=== PATIENT | female | born 1970 | race Caucasian/White ===

== ENCOUNTER 2020-11-27 19:37 | Inpatient (IN) | payer BC ==
[~2020-11-27] VITALS: Ht 162.6 cm; Wt 100.2 kg
[~2020-11-27 19:37] MED LIST: PROTONIX40 MG PO; VICODIN 5-5001 EACH PO; XANAX 0.5 MG0.5 MG
[2020-11-27 19:50] VITALS: BP 135/78
[2020-11-27 21:30] LABS: ABSOLUTE LYMPHOCYTES 0.4 thou/uL (0.8-5.3); ABSOLUTE MONOCYTES 0.4 thou/uL (0.0-1.2); ABSOLUTE NEUTROPHILS 4.1 thou/uL (1.6-8.1); BASOPHILS 0.2 %; HEMATOCRIT 41.4 % (37.0-47.0); HEMOGLOBIN 14.4 gm/dL (12.0-15.0); LYMPHOCYTES 7.7 %; MCH 28.4 pg (26.0-34.0); MCHC 34.8 g/dL (28.0-37.0); MCV 81.7 fL (80.0-100.0); MONOCYTES 7.7 %; MPV 7.3 fl. (7.2-11.1); NUCLEATED RBCS 0 /100WBC; PLATELET COUNT* 220 thou/uL (150-400); POLYS 84.4 %; RBC 5.07 mil/uL (4.20-5.00); WBC 4.8 thou/uL (4.0-11.0)
[2020-11-27 21:36] LABS: BE 0.1 mmol/L (-2 to +3); PCO2 36.3 mmHg (35.0-45.0); PO2 60.2 mmHg (75.0-100.0); pH 7.435 (7.340-7.450)
[2020-11-27 21:38] LABS: CALCIUM 8.2 mg/dL (8.5-10.1); CREATININE 0.8 mg/dL (0.6-1.3); POTASSIUM 3.8 mmol/L (3.5-5.1)
[2020-11-27 21:42] LABS: TOTAL BILIRUBIN 0.4 mg/dL (<0.1-1.0); TOTAL PROTEIN 7.2 g/dL (6.4-8.2)
[2020-11-28 01:15] VITALS: BP 127/69
[2020-11-28 02:00] VITALS: BP 128/69
--- NOTE | 2020-11-28 03:28 | NUR ---
PT TRANSFERRED TO RM 112. RECEIVED REPORT FROM DAKOTA MORIN. PT A&OX4. VSS. ADMISSION HISTORY & PHYSICAL ASSESSMENT COMPLETED AND CHARTED. ORIENTED TO ROOM & CALL LIGHT. O2 SAT 89-90'S-INCREASED O2 TO 3LNC. PT TRACING SR ON TELE. PT DENIES NAUSEA OR PAIN. CALL LIGHT WITHIN REACH.
[2020-11-28 08:12] VITALS: BP 122/59
[2020-11-28 12:00] VITALS: BP 133/67
[2020-11-28 15:55] VITALS: BP 107/61
--- NOTE | 2020-11-28 18:28 | NUR ---
Pt c/o frequent non-productive cough; orders received from Dr. Rodgers (see MAR). Denies pain. VSS. O2 @ 3L per NC; sats low 90s. Pt up ad josefa to chair/BSC. IVF running until 1800 after order to discontinue. Pt taking ice chips to help relieve cough while minimizing fluid intake as she had 2 pitchers of ice water today. Voiding per BSC; had BM today (reports it had been a week since previous BM). No nausea today. Will continue to monitor.
[2020-11-28 20:00] VITALS: BP 113/56
[2020-11-29] VITALS (8 sets, daily range): BP systolic 111–147; BP diastolic 57–70
--- NOTE | 2020-11-29 03:48 | NUR ---
ASSUMED CARE OF PT AFTER REPORT AT 1930. PT A&OX4. VSS. PHYSICAL ASEESSMENT COMPLETED AND CHARTED. PT O2 SAT 87-89%- INCREASED O2 TO 5LNC-O2 SAT 91-93%. PT TRACING SR ON TELE. PT UPADLIB TO BSC. UPDATED PTS -ANDREW REGARDING PT CONDITION. CALL LIGHT WITHIN REACH.
[2020-11-29 05:35] LABS: ABSOLUTE LYMPHOCYTES 0.6 thou/uL (0.8-5.3); ABSOLUTE MONOCYTES 0.4 thou/uL (0.0-1.2); ABSOLUTE NEUTROPHILS 4.3 thou/uL (1.6-8.1); BASOPHILS 0.1 %; HEMATOCRIT 40.5 % (37.0-47.0); HEMOGLOBIN 13.9 gm/dL (12.0-15.0); LYMPHOCYTES 10.7 %; MCH 28.1 pg (26.0-34.0); MCHC 34.4 g/dL (28.0-37.0); MCV 81.6 fL (80.0-100.0); MONOCYTES 7.3 %; MPV 7.4 fl. (7.2-11.1); NUCLEATED RBCS 0 /100WBC; PLATELET COUNT* 249 thou/uL (150-400); POLYS 81.9 %; RBC 4.96 mil/uL (4.20-5.00); RDW-CV 13.2 % (10.5-14.5); WBC 5.2 thou/uL (4.0-11.0)
[2020-11-29 06:02] LABS: ALBUMIN 2.7 g/dL (3.4-5.0); CALCIUM 7.9 mg/dL (8.5-10.1); CREATININE 0.6 mg/dL (0.6-1.3); MAGNESIUM 1.9 mg/dL (1.8-2.4); POTASSIUM 3.5 mmol/L (3.5-5.1); TOTAL BILIRUBIN 0.4 mg/dL (<0.1-1.0); TOTAL PROTEIN 6.9 g/dL (6.4-8.2)
--- NOTE | 2020-11-29 11:12 | NUR ---
PT'S CALLED FOR UPDATE AND INFORMED HIM WE HAD TO BUMP UP PT'S 02 TO 10L AND SHE WILL BE GETTING PLASMA TODAY.
--- NOTE | 2020-11-29 19:52 | NUR ---
A&OX 4, PWD. LUNGS DIMINISHED THROUGHOUT. HEART TONES REGULAR, SR ON MONITOR. +BS X 4 QUADS. PEDAL PULSES PRESENT NO EDEMA NOTED. PT HAD APPROX. 3000 MLS URINE OUT PUT. ALSO HAD BM TODAY. RIGHT AC IV LEAKING AND TAKEN OUT. NEW IV STARTED RIGHT HAND, 20G, X 1 STICK. PT RECEIVED PLASMA TODAY, CONSENT IN CHART. PT STILL ON HF NC AT 10L. NO OTHER C/O. ROMMEL CONTINUE TO MONITOR. ATE APPROX. 40% OF LUNCH.
[2020-11-30] VITALS (10 sets, daily range): BP systolic 115–157; BP diastolic 46–84
--- NOTE | 2020-11-30 06:05 | NUR ---
ASSUMED CARE OF PT AFTER REPORT AT 1930. PT A& OX4. VSS. PHYSICAL ASSESSMENT COMPLETED AND CHARTED. PT ON HFNC 11L-REFUSED BIPAP EVEN AFTERE EDUCATION. PT TRACING SR ON TELE. PT REQUESTED FOR SLEEPIN AID-DR MCGEE MADE AWARE WITH NEW ORDER. CALL LIGHT WITHIN REACH.
[2020-11-30 06:57] LABS: ABSOLUTE LYMPHOCYTES 0.6 thou/uL (0.8-5.3); ABSOLUTE MONOCYTES 0.7 thou/uL (0.0-1.2); ABSOLUTE NEUTROPHILS 3.8 thou/uL (1.6-8.1); BASOPHILS 0.2 %; HEMATOCRIT 39.8 % (37.0-47.0); HEMOGLOBIN 13.8 gm/dL (12.0-15.0); LYMPHOCYTES 11.2 %; MCH 28.2 pg (26.0-34.0); MCHC 34.7 g/dL (28.0-37.0); MCV 81.5 fL (80.0-100.0); MONOCYTES 14.6 %; MPV 7.1 fl. (7.2-11.1); NUCLEATED RBCS 0 /100WBC; PLATELET COUNT* 287 thou/uL (150-400); RBC 4.89 mil/uL (4.20-5.00); WBC 5.1 thou/uL (4.0-11.0)
[2020-11-30 07:11] LABS: PREALBUMIN 11.1 mg/dL (18.0-35.7)
[2020-11-30 07:17] LABS: ALBUMIN 2.7 g/dL (3.4-5.0); CALCIUM 8.2 mg/dL (8.5-10.1); CREATININE 0.5 mg/dL (0.6-1.3); MAGNESIUM 2.2 mg/dL (1.8-2.4); POTASSIUM 3.8 mmol/L (3.5-5.1); TOTAL BILIRUBIN 0.4 mg/dL (<0.1-1.0); TOTAL PROTEIN 6.7 g/dL (6.4-8.2)
[2020-11-30 14:29] LABS: HEMOGLOBIN 13.7 gm/dL (12.0-15.0); MCH 28.3 pg (26.0-34.0); MCHC 34.2 g/dL (28.0-37.0); MCV 82.9 fL (80.0-100.0); MPV 7.1 fl. (7.2-11.1); NUCLEATED RBCS 0 /100WBC; PLATELET COUNT* 307 thou/uL (150-400); RBC 4.83 mil/uL (4.20-5.00); RDW-CV 13.1 % (10.5-14.5); WBC 9.3 thou/uL (4.0-11.0)
[2020-11-30 14:36] LABS: CALCIUM 8.1 mg/dL (8.5-10.1); CREATININE 0.8 mg/dL (0.6-1.3); POTASSIUM 3.9 mmol/L (3.5-5.1)
[2020-11-30 14:56] LABS: ABSOLUTE LYMPHOCYTES 0.6 thou/uL (0.8-5.3); ABSOLUTE MONOCYTES 0.6 thou/uL (0.0-1.2); ABSOLUTE NEUTROPHILS 8.2 thou/uL (1.6-8.1); ATYPICAL LYMPHS 2 %; PLATELET ESTIMATE ADEQUATE
--- NOTE | 2020-11-30 16:41 | CON ---
[address] [address] CONSULTATION Name: KAILEY ADAMES Room: [address] IN M.R.#: [id number] Admission: 11/27/20 Attend Phys: Sade oYussef Discharge: Date of : 70 Report #: [id number] THIS REPORT FOR: cc: Rita Lowery Kathleen M. DO Pervez, Adeel MD ~ DATE OF CONSULTATION: 11/28/2020 CONSULT HAS BEEN REQUESTED BY: Shree Rodgers MD. INDICATION FOR CONSULTATION: COVID-19. HISTORY OF PRESENT ILLNESS: A 50-year-old female with past medical history is essentially unremarkable. She is a lifetime nonsmoker. Body mass index however is elevated to 38. The patient is unvaccinated for COVID-19, presented with nausea, vomiting, cough with yellow sputum production, had fevers and chills, was having nasal congestion as well as clear nasal discharge as well as a sore throat. She also reports did having increasing shortness of breath. The patient tested positive for COVID-19 antigen. She also is noted to be hypoxemic on room air and is requiring about 3 liters of oxygen to maintain O2 saturation in the low 90s. Overall, reports improvement in shortness of breath compared with when she was last here. REVIEW OF SYSTEMS: The patient's review of systems for 12 points is negative except as mentioned above. PAST MEDICAL HISTORY: , obesity, body mass index 38, celiac disease, possible irritable bladder. SOCIAL HISTORY: Only occasional alcohol use. No known history of illegal drug use. Lifetime nonsmoker. FAMILY HISTORY: No pertinent family history. CURRENT MEDICATIONS: List in [facility] Reviewed. HOME MEDICATIONS: No home medications. ALLERGIES: ASPIRIN. PHYSICAL EXAMINATION: GENERAL: Alert, awake and oriented, does not appear to be in any distress. VITAL SIGNS: Has a pulse of 79, blood pressure 107/61, most blood pressures previously had been in the range of 120-145 systolic, saturating 92% on 3 liters nasal cannula, respiratory rate 18-19, afebrile with a temperature of 36.9. [place] [address] CONSULTATION Name: ROSANGELAKAILEY Satish Room: [address] IN [facility]#: [id number] Admission: 11/27/20 Attend Phys: Sade Youssef Discharge: Date of : 70 Report #: [id number] HEENT: Head is normocephalic and atraumatic. NECK: Does not show raised JVP. CHEST: Clear to auscultation. HEART: Regular, no murmur. ABDOMEN: Soft and nontender. EXTREMITIES: Lower extremities, no edema, no calf tenderness. LABORATORY DATA: Chest x-ray from last night is noted, there are bilateral infiltrates consistent with COVID-19. Also, there is a lobar infiltrate at the left lung base consistent with a bacterial infection. The patient's lab work is in [facility] and this is reviewed. ASSESSMENT AND PLAN: 1. Acute hypoxemic respiratory failure secondary to COVID-19. Continue to titrate oxygen. Recommend prone positioning. Recommend out of bed to chair. Recommend avoiding lying supine. If not a problem, then recommend on sides. Recommend incentive spirometry. I also agree with nebulized bronchodilators as currently ordered. 2. COVID-19. Continue dexamethasone at 6 mg daily. Also, continue with remdesivir as currently ordered. For now, I decided to hold off on Actemra; however, I will consider if the patient's oxygen needs worsen. Follow LFTs while on remdesivir. I explained to the patient the risks and benefits of administration of convalescent plasma. The patient elected to hold off at this time. 3. Pulmonary infiltrates in addition to bilateral infiltrates consistent with COVID-19. There is a localized opacity at the left lung base. This is consistent with a bacterial infection. The patient already is on ceftriaxone and doxycycline. For now, we will continue the same. Recommend obtaining a sputum culture. 4. Obesity. We will have a low threshold of use of BiPAP in case the patient's respiratory status declines. 5. Deep venous thrombosis prophylaxis, on Lovenox. We will also obtain a D-dimer tomorrow morning. 6. Clostridium difficile prophylaxis. We will order Lactinex. 7. Fluid and electrolytes. At this time, appears to be well hydrated. Therefore, I discontinued IV fluids to avoid development of fluid overload. Thanks for this consultation. <ELECTRONICALLY SIGNED> By: Isaiah Yates MD 11/30/20 1641 165 2230Isaiah Yates MD /nt
--- NOTE | 2020-11-30 17:07 | EKG ---
[place] [address] ELECTROCARDIOGRAM REPORT Name: KAILEY ADAMES Room: [address] ADM IN M.R.#: [id number] Admission: 11/27/20 Attend Phys: Damien Storey Discharge: Date of : 70 Date of Service: 11/30/20 1332 Report #: [id number] THIS REPORT FOR: //name// [facility] Test Date: 2020-11-30 Test Time: 13:32:07 Pat Name: KAILEY ADAMES Department: Room: [address] Gender: F Stenographer Secretary: DANIELLE : 1970 Requested By: Shree Rodegrs Order Number: [id number] Tamiko MD: Duy Romeo Measurements Intervals [place] Rate: 78 P: -7 [place]: 137 QRS: 18 QRSD: 92 T: 30 QT: 380 QTc: 433 Interpretive Statements Sinus rhythm Borderline T abnormalities, anterior leads Minimal ST elevation, inferior leads No previous ECG available for comparison Electronically Signed On 11-30-2020 17:06:57 CDT by Duy Romeo [email or web address] <ELECTRONICALLY SIGNED> By: Duy Romeo MD, FACC 11/30/20 1706 1332 1332 Duy Romeo MD, FAC /EPI
--- NOTE | 2020-11-30 20:07 | NUR ---
ASSUMED PT CARE AT 0730, PT AOX4 AND GETS SOA WHEN MOVING AROUND BUT ENCOURAGED TO GET UP. AROUND LUNCH TIME, PT WAS GETTING UP TO CHAIR W/ MEAT GRADER AND STARTED COUGHING AND C/O CP AND WAS DIAPHORETIC, VS OBTAINED AND CHARTED, NITRO GIVEN, STAT EKG DONE, TROPS DRAWN AND CARDIOLOGY CONSULTED AND CAME TO SEE PT, RULED OUT OK. CARDIOLOGY WORKED W/ PT TODAY. PT TAUGHT TO USE IS AND ENCOURAGED TO USE FREQUENTLY. GOAL IS TO TITRATE O2 DOWN AND REMAIN FREE FROM CHEST PAIN.
[2020-12-01 04:24] VITALS: BP 134/79
--- NOTE | 2020-12-01 05:26 | NUR ---
ASSUMED CARE OF PT AFTER REPORT AT 1930. PT A&OX4. VSS. PHYSICAL ASSESSMENT COMPLETED AND CHARTED. PT ON HFNC 10L. PT TRACING SR ON TELE. TRANSFUSED 1 UNIT OF PLASMA. PT COMPLAINED OF NAUSEA-MED GIVEN PER MAR. CALL LIGHT WITHIN REACH.
[2020-12-01 05:38] LABS: ABSOLUTE LYMPHOCYTES 0.9 thou/uL (0.8-5.3); ABSOLUTE MONOCYTES 0.6 thou/uL (0.0-1.2); BASOPHILS 0.1 %; HEMATOCRIT 38.5 % (37.0-47.0); HEMOGLOBIN 13.4 gm/dL (12.0-15.0); LYMPHOCYTES 19.7 %; MCH 28.2 pg (26.0-34.0); MCHC 34.8 g/dL (28.0-37.0); MCV 81.2 fL (80.0-100.0); MPV 7.3 fl. (7.2-11.1); NUCLEATED RBCS 0 /100WBC; PLATELET COUNT* 311 thou/uL (150-400); POLYS 66.2 %; RBC 4.74 mil/uL (4.20-5.00); RDW-CV 12.7 % (10.5-14.5); WBC 4.5 thou/uL (4.0-11.0)
[2020-12-01 05:58] LABS: ALBUMIN 2.8 g/dL (3.4-5.0); ALKALINE PHOSPHATASE 56 U/L (46-116); ANION GAP 7 mmol/L (7-16); BUN 15 mg/dL (7-18); CALCIUM 8.2 mg/dL (8.5-10.1); CHLORIDE 101 mmol/L (98-107); CHOLESTEROL 97 mg/dL (<200); CO2 31 mmol/L (21-32); CREATININE 0.7 mg/dL (0.6-1.3); GLUCOSE 85 mg/dL (70-99); HDL CHOLESTEROL 34 mg/dL (>40); LDL CHOLESTEROL 55 mg/dL (<100); MAGNESIUM 2.2 mg/dL (1.8-2.4); POTASSIUM 3.6 mmol/L (3.5-5.1); SGOT 29 U/L (15-37); SGPT 34 U/L (30-65); SODIUM 139 mmol/L (136-145); TC:HDL 2.9 Ratio (Not establshd); TOTAL BILIRUBIN 0.5 mg/dL (<0.1-1.0); TOTAL PROTEIN 6.8 g/dL (6.4-8.2); TRIGLYCERIDE 44 mg/dL (<150); TROPONIN-I LEVEL <0.06 ng/mL (<0.06); VLDL 9 mg/dL (<40)
[2020-12-01 05:59] LABS: SERUM ASSESSMENT Clear
[2020-12-01 08:41] VITALS: BP 125/62
--- NOTE | 2020-12-01 09:40 | NUR ---
CM ASSEESSMENT: PATIENT COVID POSITIVE AND CURRENTLY UNDER ENHANCED PRECAUTIONS. PT A&O, INDEPENDENT WITH ADL'S, ACTIVE AND WORKS OUTSIDE THE HOME. PT RESIDES AT HOME WITH SPOUSE. PT USES 0 DME. PT HAS 0 HX OF HH OR SNF. PT CURRENTLY ON 10l O2, AND DID NOT HAVE HOME OXYGEN PRIOR TO ADMIT. CM D/C PLANNING TBD AT THIS TIME. CM WILL REMAIN AVAILABLE TO ASSIST AND FOLLOW NEEDED.
--- NOTE | 2020-12-01 13:24 | 2DMMODE ---
[place] [address] 2 D/M-MODE ECHOCARDIOGRAM Name: KAILEY ADAMES Room: [facility] IN .R.#: [id number] Admission: 11/27/20 Attend Phys: Damien Storey Discharge: Date of : 70 Date of Service: 12/01/20 1323 Report #: [id number] THIS REPORT FOR: cc: Rita Lowery Kathleen M. DO Liston, Michael J. MD [facility] ~ APPROVED REPORT Study performed: 12/01/2020 10:14:51 EXAM: Comprehensive 2D, Doppler, and color-flow Echocardiogram Patient Location: In-Patient Room #: [facility] Status: routine BSA: 2.03 HR: 49 bpm BP: 125/62 mmHg Rhythm: NSR Other Information Study Quality: Good Indications Chest Pain 2D Dimensions IVSd: 9.19 (7-11mm) LVOT Diam: 20.88 (18-24mm) LVDd: 45.62 mm PWd: 9.90 (7-11mm) Ascending Ao: 30.02 (22-36mm) LVDs: 27.52 (25-40mm) Aortic Root: 30.54 mm Volumes Left Atrial Volume (Systole) LA ESV Index: 19.90 mL/m2 Aortic Valve AoV Peak John.: 1.19 m/s AO Peak Gr.: 5.62 mmHg LVOT Max P.34 mmHg AO Mean Gr.: 2.99 mmHg LVOT Mean P.45 mmHg LVOT Max V: 0.91 m/s AO V2 VTI: 23.85 cm LVOT Mean V: 0.55 m/s SCOTT (VTI): 2.99 cm2 LVOT V1 VTI: 20.84 [place] [address] 2 D/M-MODE ECHOCARDIOGRAM Name: KAILEY ADAMES Room: [facility] IN .R.#: [id number] Admission: 11/27/20 Attend Phys: Damien Storey Discharge: Date of : 70 Date of Service: 12/01/20 1323 Report #: [id number] Mitral Valve E/A Ratio: 1.07 MV Decel. Time: 140.89 ms MV E Max John.: 0.82 m/s MV PHT: 40.86 ms MVA (PHT): 5.38 cm2 TDI E/Lateral E': 7.45 E/Medial E': 9.11 Medial E' John.: 0.09 m/s Lateral E' John.: 0.11 m/s Pulmonary Valve PV Peak John.: 0.81 m/s PV Peak Gr.: 2.62 mmHg Tricuspid Valve RAP Estimate: 5.00 mmHg TR Peak Gr.: 18.72 mmHg RVSP: 23.00 mmHg PA Pressure: 23.00 mmHg Left Ventricle The left ventricle is normal size. There is normal LV segmental wall motion. There is normal left ventricular wall thickness. Left ventricular systolic function is normal. LVEF is 55-60%. Transmitral Doppler flow pattern suggests impaired LV relaxation. Right Ventricle The right ventricle is normal size. The right ventricular systolic function is normal. Atria The left atrium size is normal. The right atrium size is normal. Aortic Valve The aortic valve is normal in structure. No aortic regurgitation is present. There is no aortic valvular stenosis. Mitral Valve The mitral valve is normal in structure. There is no mitral valve regurgitation noted. No evidence of mitral valve stenosis. Tricuspid Valve The tricuspid valve is normal in structure. Trace tricuspid regurgitation. [place] [address] 2 D/M-MODE ECHOCARDIOGRAM Name: KAILEY ADAMES Room: [address] IN .#: [id number] Admission: 11/27/20 Attend Phys: Damien Storey Discharge: Date of : 70 Date of Service: 12/01/20 1323 Report #: [id number] Pulmonic Valve The pulmonary valve is normal in structure. There is no pulmonic valvular regurgitation. Great Vessels The aortic root is normal in size. IVC is normal in size and collapses >50% with inspiration. Pericardium There is no pericardial effusion. <Conclusion> The left ventricle is normal size. There is normal left ventricular wall thickness. Left ventricular systolic function is normal. LVEF is 55-60%. Transmitral Doppler flow pattern suggests impaired LV relaxation. Trace tricuspid regurgitation. No pulmonary hypertension. IVC is normal in size and collapses >50% with inspiration. <ELECTRONICALLY SIGNED> By: Duy Romeo MD, FACC 12/01/20 1323 1323 1323 Duy Romeo MD, FACC /INF
[2020-12-01 14:27] VITALS: BP 129/68
--- NOTE | 2020-12-01 15:41 | EKG ---
[place] [address] ELECTROCARDIOGRAM REPORT Name: KAILEY ADAMES Room: [address] ADM IN M.R.#: [id number] Admission: 11/27/20 Attend Phys: Damien Storey Discharge: Date of : 70 Date of Service: 12/01/20 1347 Report #: [id number] THIS REPORT FOR: //name// [facility] Test Date: 2020-12-01 Test Time: 13:47:25 Pat Name: KAILEY ADAMES Department: Room: [address] Gender: F Customer Assistance Representative: KRISTEN'V : 1970 Requested By: Emil Lyon Order Number: [id number] Tamiko MD: Duy Romeo Measurements Intervals [place] Rate: 74 P: 16 ME: 142 QRS: 17 QRSD: 94 T: 37 QT: 385 QTc: 428 Interpretive Statements Sinus rhythm Minimal ST elevation, inferior leads Compared to ECG 11/30/2020 13:32:07 T-wave abnormality no longer present ST (T wave) deviation still present Electronically Signed On 12-01-2020 15:41:05 CDT by Duy Romeo [email or web address] <ELECTRONICALLY SIGNED> By: Duy Romeo MD, FACC 12/01/20 1541 1347 1347 Duy Romeo MD, FAC /EPI
--- NOTE | 2020-12-01 16:36 | CON ---
[address] [address] CONSULTATION Name: CLYDE ADAMESINA Satish Room: [facility]- ADM IN M.R.#: [id number] Admission: 11/27/20 Attend Phys: Sade Youssef Discharge: Date of : 70 Report #: [id number] THIS REPORT FOR: cc: Rita Lowery Kathleen M. DO Blick, David R. MD [facility] ~ DATE OF CONSULTATION: 11/30/2020 HISTORY OF PRESENT ILLNESS: The patient is a 50-year-old white female who I was asked to see in the hospital after she complained of chest pain. The patient has no previous history of heart disease. She stays very active, working out at the gym. She has had no previous cardiac evaluation. She was doing well until a week ago. She was exposed to COVID-19. She did not receive the vaccine. For the past several days, she has been short of breath, coughing. She vomited, felt nauseated, had a fever. She was finally admitted here to [place] 3 days ago. She was placed on oxygen. Recently when she took a deep breath or cough, she felt a discomfort in her chest. The pain was not related to food. She has had no more vomiting. She denies any trauma to her chest. There is no radiation of the discomfort. Because of chest pain, cardiology consultation requested. She denies a history of exertional dyspnea, palpitations, syncope, peripheral edema. PAST MEDICAL HISTORY: She has had previous cholecystectomy, ankle surgery. She has no history of hypertension, diabetes, hyperlipidemia. She is on no chronic medications. ALLERGIES: SHE HAD A PREVIOUS INTOLERANCE TO ASPIRIN. FAMILY HISTORY: Negative for heart disease. SOCIAL HISTORY: She is . She and her live in [place]. 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 No smoking, alcohol abuse. REVIEW OF SYSTEMS: No history of stroke, asthma, liver disease, kidney disease, cancer, psychiatric illness, chronic skin condition. PHYSICAL EXAMINATION: GENERAL: Revealed a middle-aged female, appeared in no distress, lying in bed. VITAL SIGNS: She had a blood pressure of 130/70, pulse 70. She was afebrile. HEENT: She was anicteric. Conjunctivae pink. Mucous membranes were moist. NECK: Veins not distended. No carotid bruits heard. CHEST: Revealed coarse breath sounds bilaterally. HEART: Regular rate and rhythm. No murmur. ABDOMEN: Soft. EXTREMITIES: Had no edema, no Homans sign. Posterior tibial pulse 2+ [place] [address] CONSULTATION Name: KAILEY ADAMES Room: [address] IN .R.#: [id number] Admission: 11/27/20 Attend Phys: Sade Youssef Discharge: Date of : 70 Report #: [id number] bilaterally. SKIN: Cool and dry. NEUROLOGIC: Nonfocal. LABORATORY DATA: ECG shows a sinus rhythm with some nonspecific T-wave changes. Her workup since she has been admitted, she had a portable chest x-ray on admission that showed lower lobe opacities, suspicious for pneumonia. She actually had a repeat chest x-ray earlier today that showed small effusion, continued infiltrates bilaterally. Her lab work, sodium 138, potassium 3.9, creatinine 0.8. Her liver function studies were normal. Troponin today 0.06. White blood cell count 9.3, hemoglobin 13.7. Her COVID antigen stat test was positive. IMPRESSION AND RECOMMENDATIONS: 1. Chest pain. Suspect noncardiac. Suspect pleurisy. Recommend no further cardiac evaluation nor cardiac medications. 2. COVID-19 pneumonia. <ELECTRONICALLY SIGNED> By: Emil Lyon MD, FACC 12/01/20 1636 1459 2038Dadean Lyon MD, FACC /nt
[2020-12-01 18:27] VITALS: BP 147/87
--- NOTE | 2020-12-01 18:55 | NUR ---
VSS. Voiding without difficulty, but also taking a lot of water primarily in the form of ice chips (to relieve cough). VSS. Received one time dose of furosemide and spironolactone per Dr. Yates's order, after which pt reports increased voiding. Also had BM today. O2 weaned from 10L to 8L; sats low 90s. Will continue to monitor.
[2020-12-01 20:00] VITALS: BP 133/80
[2020-12-02] VITALS: BP 110/74
[2020-12-02 04:25] LABS: HEMOGLOBIN 14.3 gm/dL (12.0-15.0); MCH 28.4 pg (26.0-34.0); MCHC 34.9 g/dL (28.0-37.0); MCV 81.4 fL (80.0-100.0); MPV 7.3 fl. (7.2-11.1); RBC 5.04 mil/uL (4.20-5.00); RDW-CV 12.7 % (10.5-14.5); WBC 5.4 thou/uL (4.0-11.0)
[2020-12-02 04:49] LABS: CALCIUM 8.5 mg/dL (8.5-10.1); CREATININE 0.7 mg/dL (0.6-1.3); MAGNESIUM 2.1 mg/dL (1.8-2.4); TOTAL BILIRUBIN 0.5 mg/dL (<0.1-1.0); TOTAL PROTEIN 6.9 g/dL (6.4-8.2)
[2020-12-02 04:57] VITALS: BP 114/69
--- NOTE | 2020-12-02 05:02 | NUR ---
ASSUMED CARE OF PT AFTER REPORT AT 1930. PT A&OX4. VSS. PHYSICAL ASSESSMENT COMPLETED AND CHARTED. PT ON [facility] 7L. PT TRACING SR ON TELE. PT UPADLIB TO BSC. PT COMPLAINED OF NAUSEA-MED GIVEN PER MAR. CALL LIGHT WITHIN REACH.
[2020-12-02 08:00] VITALS: BP 117/65
[2020-12-02 17:06] VITALS: BP 111/65
[2020-12-02 18:49] VITALS: BP 122/85
[2020-12-02 20:00] VITALS: BP 121/72
[2020-12-03 01:14] VITALS: BP 106/66
--- NOTE | 2020-12-03 04:12 | NUR ---
ASSUMED PT CARE AT APPROX 1930. PT IS AWAKE AND ORIENTED X4. PT IS NOT IN DISTRESS, NO DESATURATIONS NOTED ON 7L OF O2/HFNC. PT IS TRACING SR ON THE RESOURCE TEACHER. NO ACUTE CHANGES THIS SHIFT. CALL LIGHT WITHIN REACH. HOURLY ROUNDING DONE FOR PT SAFETY.
[2020-12-03 05:34] VITALS: BP 122/75
[2020-12-03 07:16] LABS: CALCIUM 8.6 mg/dL (8.5-10.1); CREATININE 0.7 mg/dL (0.6-1.3); MAGNESIUM 2.1 mg/dL (1.8-2.4); POTASSIUM 3.9 mmol/L (3.5-5.1)
[2020-12-03 08:00] VITALS: BP 106/62
[2020-12-03 12:01] VITALS: BP 103/64
--- NOTE | 2020-12-03 14:46 | NUR ---
PLAN OF CARE: PHYSICIAN INFORMS OF PLAN FOR PT TO REMAIN INPT AT THIS TIME. PT COVID POSITIVE AND REMAINS UNDER ENHANCED PRECAUTIONS. PT REMAINS ON 6L O2, AND DID NOT HAVE HOME OXYGEN PRIOR TO D/C. CM WILL REMAIN AVAILABLE TO ASSIST AND FOLLOW NEEDED.
[2020-12-03 16:18] VITALS: BP 119/69
[2020-12-03 20:45] VITALS: BP 108/64
--- NOTE | 2020-12-04 00:19 | NUR ---
ASSUMED CARE OF PT AT 1900. PT IS ALERT AND ORIENTED. VSS. PERRLA. NO COMPLAINTS OF PAIN. LUNGS ARE SLIGHTLY COARSE. PT IS ON 4 LITERS O2. PT IS IN SINUS RYTHM ON THE TELEMETRY. PT IS RESTING COMFORTABLY IN BED. RESPIRATIONS ARE EVEN AND NONLABORED. WILL CONTINUE TO MONITOR PT.
[2020-12-04 00:31] VITALS: BP 116/70
[2020-12-04 04:36] VITALS: BP 112/70
[2020-12-04 05:44] LABS: HEMOGLOBIN 14.6 gm/dL (12.0-15.0); MCH 27.8 pg (26.0-34.0); MCHC 33.9 g/dL (28.0-37.0); MCV 82.2 fL (80.0-100.0); MPV 7.1 fl. (7.2-11.1); RBC 5.24 mil/uL (4.20-5.00); RDW-CV 13.1 % (10.5-14.5); WBC 11.2 thou/uL (4.0-11.0)
[2020-12-04 05:57] LABS: CALCIUM 8.2 mg/dL (8.5-10.1); CREATININE 0.7 mg/dL (0.6-1.3); POTASSIUM 3.8 mmol/L (3.5-5.1)
--- NOTE | 2020-12-04 07:20 | NUR ---
CHANGE OF SHIFT REPORT GIVEN PATIENT IN BED WATCHING TV ASSUMED PATIENT CARE
[2020-12-04 08:00] VITALS: BP 100/61
[2020-12-04 11:50] VITALS: BP 109/62
--- NOTE | 2020-12-04 12:00 | NUR ---
Nutrition: Pt admitted to COVID unit. Assessed for LOS. Spoke with her RN. Pt is eating well. Wt: 219#. Alb 3, prealb 14.4. Hx, meds noted. Assessed at low nutrition risk.
[2020-12-04 16:22] VITALS: BP 102/53
[2020-12-04 20:00] VITALS: BP 123/56
[2020-12-05 00:38] VITALS: BP 90/62
--- NOTE | 2020-12-05 05:34 | NUR ---
ASSUMED CARE OF PT AFTER REPORT AT 1930. PT A&OX4. VSS. PHYSICAL ASSESSMENT COMPLETED AND CHARTED. PT ON O2 AT 2LNC. PT TRACING SR ON TELE. PT UPADLIB TO BSC. PT DENIES ANY PAIN. CALL LIGHT WITHIN REACH.
[2020-12-05 06:03] VITALS: BP 105/62
[2020-12-05 08:00] VITALS: BP 105/48
[2020-12-05] MEDS ORDERED: COMBIVENT INH (10:23)
[2020-12-05] MEDS ORDERED: VITAMIN C1000 MG PO (10:23)
[2020-12-05] MEDS ORDERED: VITAMIN D325 MC1 PO (10:23)
[2020-12-05 12:13] VITALS: BP 102/50
[2020-12-05 12:41] VITALS: BP 102/50
--- NOTE | 2020-12-05 14:30 | NUR ---
RECEIVED REPORT AROUND 0715. ASSUMED CARE. VS AND ASSESSMENT CHARTED. IV INTACT THIS AM. HEART MONITOR ATTACHED AT . MEDS GIVEN PER JUL. HOURLY ROUNDING PERFORMED. DISCHARGE ORDERS RECEIVED. REST AND EXERCISE DONE PER RT. 2L AT EXERCISE NONE AT REST. O2 SET UP. O2 TANK BROUGHT DOWN, GIVEN TO PT AT [facility]. PAPERWORK GIVEN TO PT. COMMUNICATED UNDERSTANDING. IV TAKEN OUT. HEART MONITOR OFF. PT LEFT VIA WHEEL CHAIR WITH ALL BELONGINGS AND NURSING STAFF OFF UNIT AT 1430.
== END 2020-12-05 14:30 | disposition home or self-care (01) | DRG 871 ==
LOC: M.ERS 19:37 → M.TBA-ER 22:51 → M.ORTHSURG 22:51
PROVIDERS: Family Medicine; Internal Medicine; Internal Medicine Critical Care Medicine; Personal Emergency Response Attendant; ADMIT Internal Medicine; ATTEND Internal Medicine
PROC: XW033E5 Introduction of Remdesivir Anti-infective into Peripheral Vein, Percutaneous Approach, New Technology Group 5 (ICD-10-PCS; principal; 2020-11-28)
PROC: 5A09357 Assistance with Respiratory Ventilation, Less than 24 Consecutive Hours, Continuous Positive Airway Pressure (ICD-10-PCS; 2020-11-29)
PROC: 5A0935A Assistance with Respiratory Ventilation, Less than 24 Consecutive Hours, High Flow/Velocity Cannula (ICD-10-PCS; 2020-11-29)
PROC: XW13325 Transfusion of Convalescent Plasma (Nonautologous) into Peripheral Vein, Percutaneous Approach, New Technology Group 5 (ICD-10-PCS; 2020-11-29)
PROC: 5A0935A Assistance with Respiratory Ventilation, Less than 24 Consecutive Hours, High Flow/Velocity Cannula (ICD-10-PCS; 2020-11-30)
PROC: 5A0935A Assistance with Respiratory Ventilation, Less than 24 Consecutive Hours, High Flow/Velocity Cannula (ICD-10-PCS; 2020-12-01)
PROC: 5A0935A Assistance with Respiratory Ventilation, Less than 24 Consecutive Hours, High Flow/Velocity Cannula (ICD-10-PCS; 2020-12-03)
PROC: 5A0935A Assistance with Respiratory Ventilation, Less than 24 Consecutive Hours, High Flow/Velocity Cannula (ICD-10-PCS; 2020-12-04)
PROC: 5A0935A Assistance with Respiratory Ventilation, Less than 24 Consecutive Hours, High Flow/Velocity Cannula (ICD-10-PCS; 2020-12-05)
DX: A41.89 Other specified sepsis (principal); U07.1 COVID-19; J96.01 Acute respiratory failure with hypoxia; J12.82 Pneumonia due to coronavirus disease 2019; E87.1 Hypo-osmolality and hyponatremia; E66.9 Obesity, unspecified; Z98.891 History of uterine scar from previous surgery; Z88.8 Allergy status to other drugs, medicaments and biological substances; Z72.89 Other problems related to lifestyle; Z68.37 Body mass index [BMI] 37.0-37.9, adult; Z90.49 Acquired absence of other specified parts of digestive tract